=== PATIENT | male | born 1955 | race Caucasian/White ===

== ENCOUNTER 2024-05-07 12:56 | Emergency (ER) | payer MEDICARE, OTHER, SELFPAY ==
[2024-05-07 12:57] VITALS: BP 145/72; PULSE 83; RESP 16; TEMP 36.6; O2SAT 99; BMI 22.5
--- NOTE | 2024-05-07 13:07 | EKG12_ITS ---
Test Reason : CP Blood Pressure : / mmHG Vent. Rate : 081 BPM Atrial Rate : 081 BPM P-R Int : 136 ms QRS Dur : 088 ms QT Int : 366 ms P-R-T Axes : 050 034 041 degrees QTc Int : 425 ms Normal sinus rhythm Normal ECG Confirmed by ROSS WAYNE, OLIVER ([id number]), technical writer and editor ELEUTERIO MARKS ([id number]) on 05/09/2024 2:25:28 PM Referred By: NELLY/OMAR Confirmed By:CRISTINA HAWKINS MD
--- NOTE | 2024-05-07 13:12 | EDS_ITS ---
HPI History of Present Illness Chief Complaint: Chest Pain Narrative Narrative: 68-year-old male presenting with chest pain. He states he had some tightness across his chest for about 3 days. He states he has a mild headache. He feels like he is congested. He does not really have a cough however. No shortness of breath. No fevers. Patient states the pain has been constant for 3 days. No history of DVT/PE risk factors. Patient was sweeping today when he started not feeling well and decided to come to the emergency room because of his chest pain and weakness. PFSH PFSH Medical History (Updated 05/07/24 @ 13:19 by Sandra Whitney) Hypertension Allergy/AdvReac Type Severity Reaction Status Date / Time Penicillins Allergy Unknown NEEDS Verified 05/07/24 12:57 FOLLOW-UP Surgical History (Updated 05/07/24 @ 13:20 by Sandra Whitney) H/O lithotripsy Social History Smoking Status: Unknown if ever smoked ROS ROS ED Constitutional Constitutional ED: Denies chills, fever(s) or sweats Eyes Eyes: Denies blurry vision or change in vision ENT ENT ED: Denies ear pain or sore throat Cardiovascular Cardiovascular: Reports chest pain; Denies palpitations or racing heartbeat Respiratory/Chest Respiratory/Chest: Denies cough, dyspnea or sputum Gastrointestinal Gastrointestinal: Denies abdominal pain, constipation, diarrhea, nausea or vomiting Genitourinary Genitourinary ED: Denies dysuria, hematuria or urinary frequency Musculoskeletal Musculoskeletal: Denies arthralgias, myalgias or neck pain Integumentary Denies abscess, Abrasions or rash Neurologic Neurologic: Reports headache(s); Denies paresthesias or weakness Psychiatric Psychiatric: Denies anxiety, depression, suicidal ideation or suicidal thoughts Endocrine Endocrinology: Denies polydipsia or polyuria EXAM Physical Exam Const Vital Signs: 05/07/24 12:57 05/07/24 13:18 05/07/24 14:11 Temperature 97.8 F 98.2 F Temperature Source Temporal Pulse Rate 83 74 Respiratory Rate 16 18 Blood Pressure 145/72 H 124/73 H Blood Pressure Mean 96 90 Pulse Ox 99 97 Oxygen Delivery Method Room Air Room Air Positive well nourished General Appearance ED: NAD; Negative for pallor HEENT Reports moist mucous membranes Eyes PERRL and EOMs intact bilaterally Chest Wall inspection of chest normal Resp normal respiratory effort and clear to auscultation bilaterally Auscultation: Negative for rales, rhonchi or wheezes Cardio regular rate and regular rhythm GI normal to inspection, nondistended, normoactive bowel sounds Neuro oriented x3 and CN's II-XII intact bilaterally Sensorium / Orientation: awake and alert Psych mental status grossly normal Skin no rashes or lesions noted General Skin Exam: Negative for jaundice or pallor Heart Score History: Slightly/Non-Suspicious ECG: Normal Age: >45 - <65 years Risk Factors: 1 or 2 Risk Factors Score: 2 MDM MDM MDM Narrative Medical decision making narrative: 68-year-old male presented with chest pain. States it feels like tightness. He states he feels generally weak and has a mild headache. Differential includes but is not limited to ACS, pneumonia, pneumothorax, muscle strain, costochondritis, dehydration, electrolyte abnormalities, anemia. Considered PE however patient PERC negative. CBC will be obtained to assess white blood cell count, hemoglobin, platelets. BMP to assess renal function, electrolytes, glucose. High-sensitivity troponin and EKG to assess for ischemia/dysrhythmia. Chest x-ray to rule out pneumonia or CHF. Patient declines analgesia CBC shows normal white blood cell count 5.0. Hemoglobin 12.7. Platelets are normal at 202. Renal function is normal. Electrolytes unremarkable. High-sensitivity troponin is 8. Since patient is having pain for 3 days I do not believe needs a delta troponin. EKG interpreted by myself shows a normal sinus rhythm at 81 bpm without sign of ischemic change or dysrhythmia. Chest x-ray interpreted by myself shows no acute cardiopulmonary process. The radiologist interprets this and agrees. Given patient's workup is negative I feel he safe to be discharged home. We discussed all of his lab work and imaging. All questions were answered. Discharged stable condition. Impression: 1. chest pain Lab Data Attestation: I reviewed the patient's lab results. Labs: Laboratory Results - last 24 hr 05/07/24 13:20 WBC 5.0 RBC 4.14 L Hgb 12.7 L Hct 38.3 L MCV 92.5 MCH 30.7 MCHC 33.2 RDW Std Deviation 42.6 RDW Coeff of Maya 12.5 Plt Count 202 MPV 10.3 Immature Gran % (Auto) 0.200 Neut % (Auto) 51.3 Lymph % (Auto) 31.1 Moore % (Auto) 11.4 H Eos % (Auto) 5.6 H Baso % (Auto) 0.4 Absolute Neuts (auto) 2.6 Absolute Lymphs (auto) 1.56 Nucleated RBC % 0 Sodium 138 Potassium 3.4 L Chloride 106 Carbon Dioxide 29.0 Anion Gap 3 L BUN 21 H Creatinine 0.92 Estim Creat Clear Calc 63.45 Est GFR (MDRD) Af Amer 105 Est GFR (MDRD) Non-Af 87 BUN/Creatinine Ratio 22.9 H Glucose 138 H Calcium 8.6 Troponin I High Sens 8 Radiography Diagnostic Testing: Clinical Impression(s) from Imaging Studies Chest X-Ray 05/07/24 13:27 IMPRESSION: No radiographic evidence of acute cardiopulmonary disease. Electronically Signed: Clayton Braxton MD at 13:52 EDT , Discharge Plan Triage Chief Complaint: Chest Pain ED Provider: Tico Akins Dx/Rx/DC Orders Instructions: ED Chest Pain, Uncertain Cause Primary Care Provider: Lisseth Mccoy NP Referrals: Lisseth Mccoy ACCREDITED LEGAL SECRETARY, ACCREDITED LEGAL SECRETARY-C [Primary Care Provider] - Print Language: Greek Disposition Disposition: Home, Self Care Discharge Date/Time: 05/07/24 14:13
[2024-05-07] MEDS: Aspirin 81 MG TAB.CHEW 324 MG PO (13:16)
[2024-05-07 13:27] LABS: Absolute Lymphocyte Count 1.56 X10^3/uL (0.83-4.51); Absolute Neutrophil Count 2.6 X10^3/uL (2.0-7.7); Basophil# 0.02 X10^3/uL; Basophil% 0.4 % (0-1); Eosinophil# 0.28 X10^3/uL; Eosinophils% 5.6 % (0-5); Hematocrit 38.3 % (40-54); Hemoglobin 12.7 g/dL (13.0-16.5); Lymphocyte # 1.56 X10^3/ul (0.83-4.51); Lymphocyte % 31.1 % (19-41); Mean Corp Hgb Conc 33.2 g/dL (32-36); Mean Corpuscular Hgb 30.7 pg (27.0-32.0); Mean Corpuscular Volume 92.5 fL (80-94); Mean Platelet Vol. 10.3 fl (6.2-12.0); Monocyte# 0.57 X10^3/uL; Monocyte% 11.4 % (0-10); NRBC Flagged by Analyzer 0 % (0-5); Neutrophil # 2.58 X10^3/uL (2.7-7.7); Neutrophil % 51.3 % (47-70); Platelet Count 202 K/mm3 (150-450); RBC Distribution Width CV 12.5 % (11.6-14.6); RBC Distribution Width SD 42.6 fl (35.1-43.9); Red Blood Count 4.14 M/mm3 (4.6-6.2)
--- NOTE | 2024-05-07 13:27 | RAD_ITS ---
INDICATION: chest pain EXAMINATION/TECHNIQUE: X-RAY - XR Chest 1 View COMPARISON: No relevant prior comparison study available FINDINGS: LINES/DEVICES: None. LUNGS: No consolidation, edema or effusion. No pneumothorax. MEDIASTINUM AND CARDIOVASCULAR STRUCTURES: Cardiac silhouette not enlarged. Central airways and mediastinal contour are unremarkable. BONES AND SOFT TISSUES: Dextroscoliosis of the thoracic spine. RAD/Chest 1 View (Portable) IMPRESSION: No radiographic evidence of acute cardiopulmonary disease. Electronically Signed: Clayton Braxton MD at 13:52 EDT ,
[2024-05-07 13:41] LABS: Anion Gap 3 (5-15); BUN 21 mg/dL (7-18); BUN/Creat Ratio 22.9 RATIO (10-20); Calcium,Total 8.6 mg/dL (8.5-10.1); Chloride 106 mmol/L (98-107); Creatinine, Serum 0.92 mg/dL (0.70-1.30); EST Glomerular Filtration Rate 87 mL/min (>60); Est Glom Filt Rate - Afr Amer 105 mL/min (>60); Estimated Creatinine Clearance 63.45 ml/min; Glucose 138 mg/dL (74-106); Potassium 3.4 mmol/L (3.5-5.1); Sodium Level 138 mmol/L (136-145); Troponin-I HS 8 pg/mL (3.0-78.0)
[2024-05-07 14:11] VITALS: BP 124/73; PULSE 74; RESP 18; TEMP 36.8; O2SAT 97
== END 2024-05-07 14:13 | disposition home or self-care (01) ==
PROVIDERS: Emergency Provider Student in an Organized Health Care Education/Training Program; PCP Nurse Practitioner Family; Visit Provider Student in an Organized Health Care Education/Training Program
DX: R07.9 Chest pain, unspecified (principal); I10 Essential (primary) hypertension; R51.9 Headache, unspecified
CPT/HCPCS: 71045; 80048; 84484; 85025; 93005; 99284